=== PATIENT | male | born 1990 | race Caucasian/White ===

== ENCOUNTER 2019-04-29 21:16 | Emergency (ER) | payer OTHER, BC ==
[2019-04-29 21:34] VITALS: BP 140/95
--- NOTE | 2019-04-29 22:20 | ER Document Report ---
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 Patient reports he was first getting an arrestee when he was stuck by a needle that was in the persons pocket. Patient reports needlestick to the left index finger. He states that he immediately had alcohol put to the area. - REPRODUCTIVE Reproductive: DENIES: : Past Medical History - General Information source: Patient - Social History Smoking Status: Never Smoker Chew tobacco use (# tins/day): No Frequency of alcohol use: Occasional Drug Abuse: None Family History: Reviewed & Not Pertinent Patient has suicidal ideation: No Patient has homicidal ideation: No - Medical History Medical History: Negative Surgical Hx: Negative - Immunizations Hx Diphtheria, Pertussis, Tetanus Vaccination: Yes Vertical Provider Document - CONSTITUTIONAL Notes: PHYSICAL EXAMINATION: GENERAL: Well-appearing, well-nourished and in no acute distress. HEAD: Atraumatic, normocephalic. EYES: Pupils equal round extraocular movements intact, conjunctiva are normal. ENT: Nares patent NECK: Normal range of motion LUNGS: No respiratory distress Musculoskeletal: Normal range of motion NEUROLOGICAL: Normal speech, normal gait. PSYCH: Normal mood, normal affect. SKIN: Warm, Dry, normal turgor, no rashes or lesions noted. No needlestick injury noted. - INFECTION CONTROL TRAVEL OUTSIDE OF THE [place] IN LAST 30 DAYS: No Course - Re-evaluation Re-evalutation: Patient was seen in the emergency department, blood sampling was drawn from the patient as well as the possible source. It is unknown if the needle that the patient was stuck by actually belongs to the source as the source/arrestee is saying it is not his. Patient requesting prophylactic treatment for HIV. We discussed that this needlestick was a very low risk situation due to the size of the needle, patient states he wants the medications in case he decides to take them once he gets all results back. Patient and counseled that he must start the medications within 72 hours, patient verbalizes understanding and agreement with this plan. - Vital Signs Vital signs: Temp Pulse Resp BP Pulse Ox 98.2 F 92 18 140/95 H 98 04/29/19 21:29 04/29/19 21:29 04/29/19 21:29 04/29/19 21:29 04/29/19 21:29 Discharge - Discharge Clinical Impression: Needle stick injury of finger Condition: Stable Disposition: HOME, SELF-CARE Additional Instructions: Body Fluid Exposure You have had a potentially serious body fluid exposure from another person. Most of the time this type of exposure does not cause any problems. However, several infections can be transmitted this way. The most significant risk is hepatitis or HIV (the virus that causes AIDS). Being seen quickly for medical care is important. Hepatitis B and C viruses cause a serious liver infection. Immunization against Hepatitis B virus can prevent this infection. This requires an immediate dose, then booster doses at 1 and 6 months. The risk of transmitting HIV infection by a single body fluid exposure is very small. Even with high risk exposure (blood directly on mucous membranes from a person known to have HIV infection) the chance of getting infected is less than one in a thousand. Patients with high risk exposures should consider preventive treatment. Zidovudine (ZDV) treatment, or a combination of anti-HIV drugs can reduce the chance of HIV infection significantly. Treatment is usually continued for 4 weeks. Blood tests for HIV should be taken now and repeated at 6 weeks, and again at 3 and 6 months. Please call [phone] to follow up on your test results. If you decide to take the HIV prophylaxis medications, they must be started in 72 hours. Please follow-up with your primary care physician. Referrals: MIGUEL PIERRE, [Primary Care Provider] - Follow up as needed
[2019-04-29] MEDS ORDERED: EMTRICITABINE/TENOFOVIR 200-300 MG TAB (3 TAB/ER DISP) PO PRN (22:30)
[2019-04-29] MEDS ORDERED: RALTEGRAVIR 400 MG TAB (6 TAB/ER DISP) PO PRN (22:30)
[2019-05-01 07:37] LABS: HEPATITS B SURFACE ANTIGEN Negative (Negative)
[2019-05-02 07:04] LABS: HEPATITIS C VIRUS ANTIBODY <0.1 s/co ratio (0.0-0.9)
== END 2019-04-29 22:43 | disposition home or self-care (01) ==
LOC: ER 21:16
DX: S61.231A Puncture wound without foreign body of left index finger without damage to nail, initial encounter (principal); W46.0XXA Contact with hypodermic needle, initial encounter; Y99.0 Civilian activity done for income or pay
CPT/HCPCS: 36415; 80074; 86701; 99283

== ENCOUNTER 2019-08-14 21:12 | Emergency (ER) | payer OTHER, BC ==
--- NOTE | 2019-08-14 22:21 | ER Document Report ---
ED Medical Screen (RME) - General Chief Complaint: Foot Injury Stated Complaint: WC/LEFT FOOT/LEG PAIN Primary Care Provider: MIGUEL PIERRE DO [Primary Care Provider] - Follow up as needed Notes: Patient is a 29-year-old white male with no significant past medical history presents to the emergency department the chief complaint of left marquez pain after an injury that occurred recently. 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 He states with subsequent use of the foot the pain in the marquez has worsened. Denies any numbness tingling or weakness. TRAVEL OUTSIDE OF THE [place] IN LAST 30 DAYS: No - Related Data Allergies/Adverse Reactions: No Known Allergies Allergy (Verified 08/14/19 22:11) Home Medications: ALLERGIES Past Medical History - Immunizations Hx Diphtheria, Pertussis, Tetanus Vaccination: Yes Physical Exam - Vital signs Vitals: Temp Pulse Resp BP Pulse Ox 97.7 F 71 20 151/97 H 98 08/14/19 21:17 08/14/19 21:17 08/14/19 21:17 08/14/19 21:17 08/14/19 21:17 Course - Vital Signs Vital signs: Temp Pulse Resp BP Pulse Ox 97.7 F 71 20 151/97 H 98 08/14/19 21:17 08/14/19 21:17 08/14/19 21:17 08/14/19 21:17 08/14/19 21:17 Doctor's Discharge - Discharge Referrals: MIGUEL PIERRE DO [Primary Care Provider] - Follow up as needed
--- NOTE | 2019-08-14 23:24 | RADIOLOGY REPORT (SQ) ---
EXAM DESCRIPTION: XR TIBIA FIBULA 2 VIEWS COMPLETED DATE/TME: 08/14/2019 22:20 CLINICAL HISTORY: 29 years, Male, pain COMPARISON: None. NUMBER OF VIEWS: 4 TECHNIQUE: Frontal and lateral radiographs were obtained LIMITATIONS: None. FINDINGS: Visualized osseous structures are normal in appearance. Joint spaces are well-maintained. No acute fracture or dislocation is evident. IMPRESSION: No acute osseous anomaly. copyright 2010 [employer]- All Rights Reserved
--- NOTE | 2019-08-14 23:55 | ER Document Report ---
ED General - General Chief Complaint: Foot Injury Stated Complaint: WC/LEFT FOOT/LEG PAIN Primary Care Provider: MIGUEL PIERRE DO [Primary Care Provider] - Follow up as needed Notes: Patient is a 29-year-old white male with no significant past medical history presents to the emergency department with a chief complaint of injury to the left marquez yesterday while at work. 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 States at the time it was little sore but nothing major. States with repeated walking and activities throughout the day/night the patient began to worsen particularly with plantarflexion. Denies any significant swelling or point tenderness. Denies any numbness tingling or weakness. TRAVEL OUTSIDE OF THE [place] IN LAST 30 DAYS: No - Related Data Allergies/Adverse Reactions: No Known Allergies Allergy (Verified 08/14/19 22:11) Home Medications: ALLERGIES Past Medical History - Social History Smoking Status: Never Smoker Family History: Reviewed & Not Pertinent Patient has suicidal ideation: No Patient has homicidal ideation: No - Immunizations Hx Diphtheria, Pertussis, Tetanus Vaccination: Yes Review of Systems - Review of Systems Musculoskeletal: Other - Leg pain -: Yes All other systems reviewed and negative Physical Exam - Vital signs Vitals: Temp Pulse Resp BP Pulse Ox 97.7 F 71 20 151/97 H 98 08/14/19 21:17 08/14/19 21:17 08/14/19 21:17 08/14/19 21:17 08/14/19 21:17 - General General appearance: Appears well, Alert In distress: None - Respiratory Respiratory status: No respiratory distress Chest status: Nontender Breath sounds: Normal Chest palpation: Normal - Cardiovascular Rhythm: Regular Heart sounds: Normal auscultation - Extremities General lower extremity: Normal inspection, Nontender, Normal ROM, Normal strength, Normal temperature, Normal weight bearing. No: Flakita's sign - Neurological Neuro grossly intact: Yes Cognition: Normal Orientation: AAOx4 [place] Coma Scale Eye Opening: Spontaneous [place] Coma Scale Verbal: Oriented Evan Coma Scale Motor: Obeys Commands [place] Coma Scale Total: 15 Speech: Normal - Psychological Associated symptoms: Normal affect, Normal mood - Skin Skin Temperature: Warm Skin Moisture: Dry Skin Color: Normal Course - Re-evaluation Re-evalutation: 08/14/19 23:54 X-rays negative for acute process per radiologist. Discussed with patient supportive care measures. Counseled him at length regarding the importance of outpatient follow-up and advised to return here or any ER immediately with any new, persistent or worsening symptoms. He verbalized understood and agreed. - Vital Signs Vital signs: Temp Pulse Resp BP Pulse Ox 97.7 F 71 20 151/97 H 98 08/14/19 21:17 08/14/19 21:17 08/14/19 21:17 08/14/19 21:17 08/14/19 21:17 Discharge - Discharge Clinical Impression: Marquez injury Qualifiers: Encounter type: initial encounter Laterality: unspecified laterality Qualified Code(s): S89.90XA - Unspecified injury of unspecified lower leg, initial encounter Condition: Stable Disposition: HOME, SELF-CARE Instructions: [facility] ([facility]) Additional Instructions: Follow-up with your regular doctor in 2 to 3 days for reevaluation. Return here or any ER immediately with any new, persistent or worsening symptoms. Referrals: MIGUEL PIERRE, [Primary Care Provider] - Follow up as needed
[2019-08-15 00:03] VITALS: BP 133/88
== END 2019-08-15 00:02 | disposition home or self-care (01) ==
LOC: ER 21:12
DX: S89.92XA Unspecified injury of left lower leg, initial encounter (principal); W19.XXXA Unspecified fall, initial encounter; Y93.89 Activity, other specified; Y99.0 Civilian activity done for income or pay; Z79.899 Other long term (current) drug therapy
CPT/HCPCS: 99283

== ENCOUNTER → 2020-01-16 | Outpatient (CLI) | payer BC ==
--- NOTE | 2020-01-16 14:55 | RADIOLOGY REPORT (SQ) ---
EXAM DESCRIPTION: FOOT LEFT 2 VIEWS IMAGES COMPLETED DATE/TIME: 01/16/2020 2:45 pm REASON FOR STUDY: FOOT PAIN COMPARISON: None. NUMBER OF VIEWS: Two views. TECHNIQUE: AP and lateral radiographic images acquired of the left foot. LIMITATIONS: None. FINDINGS: MINERALIZATION: Normal. BONES: No acute fracture or dislocation. No worrisome bone lesions. JOINTS: No effusions. SOFT TISSUES: No soft tissue swelling. No foreign body. OTHER: No other significant finding. IMPRESSION: NEGATIVE STUDY OF THE LEFT FOOT. NO RADIOGRAPHIC EVIDENCE OF ACUTE INJURY. TECHNICAL DOCUMENTATION: JOB ID: [id number] [employer]- All Rights Reserved Reading location - IP/workstation name: [email or web address]
== END ==
LOC: RAD 14:30
PROVIDERS: ATTEND Student in an Organized Health Care Education/Training Program
DX: Z87.312 Personal history of (healed) stress fracture (principal)